=== PATIENT | male | born 1955 ===

== ENCOUNTER 2025-03-10 05:10 | Day surgery (SDC) | payer OTHER ==
[2025-02-28 07:23] VITALS: BP 147/94
[2025-02-28 07:40] LABS: BASO % 0.9 % (0.1-1.2); EOS # 0.08 (0.04-0.54); EOS % 1.5 % (0.7-7.0); LYMPH # 1.02 (1.18-3.74); LYMPH % 18.5 % (19.3-53.1); MEAN PLATELET VOLUME 10.80 fl (9.4-12.4); MONO # 0.41 (0.24-0.82); MONO % 7.4 % (4.7-12.5); NEUT # 3.93 (1.56-6.13); NEUT % 71.3 % (34.0-71.1); RED CELL DISTRIBUTION WIDTH 14.1 % (11.6-14.4)
[2025-02-28 07:44] LABS: URINE APPEARANCE Clear; URINE BILIRRUBIN Negative (NEGATIVE); URINE BLOOD Negative; URINE COLOR Yellow; URINE KETONE Negative (NEGATIVE); URINE LEUKOCYTE Negative; URINE NITRATE Negative; URINE PROTEIN Trace (NEGATIVE); URINE UROBILINOGEN 0.2 E.U./dl
[2025-02-28 07:48] LABS: URINE BACTERIA 11.4 uL (0.0-1933); URINE EPITHELIAL CELLS 3.5 uL (0.0-38.8); URINE RBC 4.6 uL (0.0-20.8); URINE WBC 5.3 uL (0.0-23.2)
[2025-02-28 08:08] LABS: URINE CAST 0.14 uL (0.0-1.40); URINE GLUCOSE >=1000 MG/DL (NEGATIVE)
[2025-02-28 08:09] LABS: INR 1.08
[2025-02-28 08:22] LABS: BUN CREA RATIO 21.0 (7.0-25.0); CREATININE SERUM 0.98 mg/dL (0.70-1.30); GFR 75.61; OSMOLALITY SERUM 297.0 MOSM/KG (275-295)
[2025-02-28 08:32] LABS: GLUCOSE FASTING 262.0 mg/dL (65-100)
[~2025-03-10 05:10] MED LIST: COZAAR100 MG; GLIPIZIDE XL10 MG; METFORMIN HCL1000 M2; SYNTHROID100 MCG
[2025-03-10] MEDS ORDERED: CEFAZOLIN SODIUM 1,000 MG VIAL ONE ×2 (07:21→12:54)
[2025-03-10] MEDS ORDERED: LIDOCAINE HCL 1%/EPINEPHRINE 20ML VIAL IJ ONE (08:31)
[2025-03-10] MEDS ORDERED: EPINEPHRINE HCL/PF 1 MG/ML AMPUL ONE (08:31)
[2025-03-10] MEDS ORDERED: BUPIVACAINE HCL 0.5% 50ML VIAL ONE (08:31)
[2025-03-10] MEDS ORDERED: METHYLPREDNISOLONE ACETATE 80 MG/ML VIAL ONE (08:31)
[2025-03-10] MEDS ORDERED: TRAM1TAB98 PO (09:39)
[2025-03-10] MEDS ORDERED: CEFADROXIL500 MG PO (09:40)
[2025-03-10] MEDS ORDERED: CEFAZOLIN SODIUM 1,000 MG VIAL IV ONE (09:45)
== END 2025-03-10 13:30 | disposition home or self-care (01) ==
LOC: CIR.AMB 05:10
PROVIDERS: ATTEND Orthopaedic Surgery Sports Medicine
DX: M23.321 Other meniscus derangements, posterior horn of medial meniscus, right knee (principal); M17.11 Unilateral primary osteoarthritis, right knee; M65.861 Other synovitis and tenosynovitis, right lower leg; M22.41 Chondromalacia patellae, right knee; M67.51 Plica syndrome, right knee